=== PATIENT | female | born 1965 | race Two or more races ===

== ENCOUNTER 2018-07-24 10:27 | Outpatient (CLI) | payer OTHER | END 2018-07-24 10:35 | disposition home or self-care (01) | LOC: MAMO-SONO 10:27 | DX: N60.11 Diffuse cystic mastopathy of right breast (principal); N60.12 Diffuse cystic mastopathy of left breast; Z12.31 Encounter for screening mammogram for malignant neoplasm of breast ==

== ENCOUNTER 2019-11-28 09:00 | Day surgery (SDC) | payer OTHER | END 2019-11-28 14:50 | disposition home or self-care (01) | LOC: AMB-ENDOS 09:00 | PROVIDERS: ATTEND Colon & Rectal Surgery | DX: D12.0 Benign neoplasm of cecum (principal); D12.2 Benign neoplasm of ascending colon; K64.8 Other hemorrhoids; Z12.11 Encounter for screening for malignant neoplasm of colon ==

== ENCOUNTER 2020-04-14 10:36 | Outpatient (CLI) | payer OTHER | END 2020-04-14 10:38 | disposition home or self-care (01) | LOC: MAMO-SONO 10:36 | PROVIDERS: ATTEND Obstetrics & Gynecology | DX: Z12.31 Encounter for screening mammogram for malignant neoplasm of breast (principal); N60.11 Diffuse cystic mastopathy of right breast; N60.12 Diffuse cystic mastopathy of left breast ==

== ENCOUNTER 2021-12-26 18:39 | Emergency (ER) | payer OTHER ==
[~2021-12-26] VITALS: Ht 162.6 cm; Wt 66.2 kg
== END 2021-12-26 22:32 | disposition home or self-care (01) ==
LOC: ER 18:39
DX: S19.9XXA Unspecified injury of neck, initial encounter (principal); V49.9XXA Car occupant (driver) (passenger) injured in unspecified traffic accident, initial encounter; Y93.9 Activity, unspecified; Y99.9 Unspecified external cause status; M62.838 Other muscle spasm

== ENCOUNTER 2022-08-04 11:07 | Outpatient (CLI) | payer OTHER | END 2022-08-04 11:38 | disposition home or self-care (01) | LOC: MAMO-SONO 11:07 | PROVIDERS: ATTEND Obstetrics & Gynecology | DX: N60.11 Diffuse cystic mastopathy of right breast (principal); N60.12 Diffuse cystic mastopathy of left breast ==

== ENCOUNTER 2024-02-03 09:36 | Outpatient (CLI) | payer OTHER | END 2024-02-03 09:47 | disposition home or self-care (01) | LOC: SONOGRAMA 09:36 | PROVIDERS: ATTEND Internal Medicine Cardiovascular Disease | DX: R10.9 Unspecified abdominal pain (principal); N39.0 Urinary tract infection, site not specified; M46.47 Discitis, unspecified, lumbosacral region ==

== ENCOUNTER 2024-09-11 07:13 | Outpatient (CLI) | payer OTHER | END 2024-09-11 07:37 | disposition home or self-care (01) | LOC: MAMO-SONO 07:13 | PROVIDERS: ATTEND Obstetrics & Gynecology | DX: N60.11 Diffuse cystic mastopathy of right breast (principal); N60.12 Diffuse cystic mastopathy of left breast ==